=== PATIENT | female | born 1965 | race Caucasian/White ===

== ENCOUNTER 2023-09-10 08:37 | Day surgery (SDC) | payer BC ==
[2023-09-10] MEDS: Lactated Ringers 1,000 ML IV SCH (08:59)
[2023-09-10] MEDS ORDERED: fentaNYL 100 MCG/2 ML SDV ONE (10:23)
[2023-09-10] MEDS ORDERED: Propofol 200 MG/20 ML SDV ONE (10:23)
[2023-09-10] MEDS ORDERED: Midazolam 1 MG/ML 2 ML SDV ONE (10:23)
[2023-09-10 11:28] VITALS: BP 93/59; PULSE 74
== END 2023-09-10 12:17 | disposition home or self-care (01) ==
LOC: VM.SDS 08:37
PROVIDERS: ATTEND Student in an Organized Health Care Education/Training Program
DX: Z12.11 Encounter for screening for malignant neoplasm of colon (principal); D12.0 Benign neoplasm of cecum; D12.2 Benign neoplasm of ascending colon; D12.3 Benign neoplasm of transverse colon; K21.9 Gastro-esophageal reflux disease without esophagitis; M81.0 Age-related osteoporosis without current pathological fracture; F41.9 Anxiety disorder, unspecified; Z86.010 Personal history of colon polyps; Z87.891 Personal history of nicotine dependence; Z79.899 Other long term (current) drug therapy; Z88.5 Allergy status to narcotic agent
CPT/HCPCS: 00811; 45385; J2250; J2704; J3010; J7120